=== PATIENT | male | born 2005 | race Two or more races ===

== ENCOUNTER 2024-04-26 13:08 | Emergency (ER) | payer BC ==
[~2024-04-26] VITALS: Ht 172.7 cm; Wt 68.0 kg
[2024-04-26] MEDS ORDERED: KEPPRA500 MG (13:12)
[2024-04-26] MEDS ORDERED: LORazepam 2 MG/ML VIAL ONE (13:35)
[2024-04-26] MEDS ORDERED: DEXTROSE 5 % AND 0.9 % NACL 1,000 ML IV SCH (14:00)
[2024-04-26] MEDS ORDERED: LORazepam 2 MG/ML VIAL IV STA (14:00)
[2024-04-26] MEDS ORDERED: ONDANSETRON HCL 2 MG/ML VIAL ONE (14:15)
[2024-04-26] MEDS ORDERED: PROPOFOL 10,000 MCG/ML VIAL ONE ×2 (14:21→14:29)
[2024-04-26 14:25] LABS: HEMATOCRIT 43.4 % (39.0-48.0); HEMOGLOBIN 14.5 g/dL (13-16.00); MEAN CELL VOLUME 95.2 fL (80.0-100.00); MEAN CORPUSCULAR HEMOGLOBIN 31.8 pg (27.00-32.0); MEAN CORPUSCULAR HGB CONC 33.4 g/dl (32.0-36.0); PLATELET COUNT 195 K/uL (150-450); RED BLOOD COUNT 4.56 M/uL (4.00-6.00); RED CELL DISTRIBUTION WIDTH 13.5 % (11.5-14.5)
[2024-04-26 14:42] LABS: ALBUMIN 4.2 gm/dL (3.4-5.0); BILIRUBIN TOTAL 0.31 mg/dL (0.3-1.2); CALCIUM 9.1 mg/dL (8.5-10.1); CREATININE SERUM 0.96 mg/dL (0.70-1.30); GFR 99.86; GLOBULINA 3.5 G/DL (2.4-3.5); POTASSIUM 3.91 mEq/L (3.5-5.1); TOTAL PROTEIN 7.7 gm/dL (6.4-8.2)
[2024-04-26] MEDS ORDERED: PROPOFOL 100 ML IV SCH ×2 (15:30→15:45)
[2024-04-26] MEDS ORDERED: LevETIRAcetam 500 MG/5 ML VIAL IV STA (15:34)
[2024-04-26 15:53] LABS: COCAINE NEGATIVE (NEGATIVE); METHADONE NEGATIVE (NEGATIVE); OPIATES NEGATIVE (NEGATIVE); THC ( Cannabinoids) NEGATIVE (NEGATIVE)
[2024-04-26 17:50] LABS: ABG PH 7.419 (7.35-7.45); ABG PO2 449.3 mmHg (80-100); ABG pCO2 41.9 mmHg (35-45); BASE EXCESS 1.8 mmol/l; BICARBONATE 26.5 mmol/l (23-25); Tco2 27.8 mmol/l
[2024-04-26] MEDS ORDERED: FAMOTIDINE/PF 20 MG/2 ML VIAL IV PUSH STA (18:32)
[2024-04-26] MEDS ORDERED: PIPERACILLIN/TAZOBACTAM SODIUM 3.375 GM VIAL IV STA (18:32)
[2024-04-26] MEDS ORDERED: FAMOTIDINE/PF 20 MG/2 ML VIAL ONE (18:38)
[2024-04-26 19:44] LABS: ABG PH 7.427 (7.35-7.45); ABG PO2 197.6 mmHg (80-100); ABG pCO2 40.6 mmHg (35-45); BASE EXCESS 1.7 mmol/l; BICARBONATE 26.2 mmol/l (23-25); SaO2 99.7 %; Tco2 27.4 mmol/l
[2024-04-26 23:25] LABS: allen test SATISFACTORY; o2 100 %; puncture site RADIAL LEFT
[2024-04-26 23:26] LABS: allen test SATISFACTORY; o2 40 %; puncture site RADIAL RIGHT
== END 2024-04-26 20:41 | disposition designated cancer center or children's hospital (05) ==
LOC: EMR PED 13:08 → ER 13:08
PROVIDERS: Emergency Medicine; General Practice
DX: G40.802 Other epilepsy, not intractable, without status epilepticus (principal); Z20.822 Contact with and (suspected) exposure to COVID-19